=== PATIENT | male | born 1950 | race Caucasian/White ===

== ENCOUNTER 2016-11-26 00:24 | Emergency (ER) | payer MEDICARE ==
--- NOTE | 2016-11-26 01:11 | ER NURSING DOCUMENTATION ---
Nurse's Notes [facility] Name:Britt Rasheed Age:66 yrs Sex:Male :1950 Arrival Date:11/26/2016 Time:00:24 Bed1 Private MD:Gerry Beauchamp Diagnosis:Head Laceration-3 cm, simple closure (by MD) Presentation: 11/26 00:28 Presenting complaint: Patient states: PT was walking in his home, lost his balance and rh fell backwards, he struck his head on the chair. No LOC/no headache or nausea. Transition of care: Home. Complicating Factors: There are no complicating factors for this patient. 00:28 Acuity: GWENDOLYN 4 rh 00:28 Method Of Arrival: Private Vehicle Triage Assessment: 00:30 General: Appears in no apparent distress, Behavior is cooperative. Pain: Complains of rh pain in left parietal area and left knee. EENT: Oral mucosa is moist. Neuro: Level of Consciousness is awake, alert, obeys commands, Oriented to person, place, time, event, Moves all extremities. Speech is normal, Facial symmetry appears normal. Cardiovascular: Capillary refill < 3 seconds. GI: Denies nausea. Derm: Skin is intact, is healthy with good turgor, Skin is pink, warm & dry. Injury Description: Laceration sustained to left parietal area is clean, 0.5 to 2.5 cm long, was sustained less than 30 minutes ago. is bleeding moderately. Historical: - Allergies: SULFA (SULFONAMIDES); - Home Meds: 1. hydrocodone-acetaminophen 7.5-300 mg oral tab 2 tabs every 4 hours for Pain 2. diphenoxylate-atropine 2.5-0.025 mg oral tab one tab prn 3. cyclobenzaprine 10 mg oral tab 1 tab 3 times per day 4. hydrocodone-acetaminophen 10-325 mg oral tab every 4-6 hours 5. niacin oral once daily 6. omeprazole 20 mg oral cpDR 1 cap once daily 7. sertraline 100 mg oral tab 2 tabs once daily 8. Iron CR Oral daily - PMHx: Gastroenteritis (October 26, 2014); Acute Renal/Kidney Failure, Nontraumatic (October 26, 2014); Dehydration (October 26, 2014); left BKA; - Tetanus: < 10 years. - Ebola Screening: : Patient negative for fever greater than or equal to 101.5 degrees Fahrenheit, and additional compatible Ebola Virus Disease symptoms. - Immunization history: Flu Vaccine < 1 year. - Social history: Smoking status: Patient states was never smoker of tobacco. Screenin:32 Infectious Disease Risk None. Abuse screen: Denies threats or abuse. Denies injuries rh from another. Nutritional screening: No deficits noted. Assessment: 00:32 See Triage Assessment done by same RN. rh Vital Signs: 00:31 BP 103 / 60; Pulse 82; Resp 17; Temp 97.7; Pulse Ox 95% on R/A; Weight 68.04 kg; Height rh 5 ft. 8 in. (172.72 cm); Pain 5/10; 00:31 Body Mass Index 22.81 (68.04 kg, 172.72 cm) rh Cliff Coma Score: 00:40 Eye Response: spontaneous(4). Verbal Response: oriented(5). Motor Response: obeys cd commands(6). Total: 15. ED Course: 00:26 Patient arrived in ED. em2 00:26 Gerry Beauchamp DO is Private Physician. em2 00:28 Saima Amaya is Primary Nurse. rh 00:29 Triage completed. rh 00:32 Valuables Remains with patient Patient has correct armband on for positive rh identification. Bed in low position. Call light in reach. Side rails up X 1. Family accompanied patient. 00:32 Ice pack applied. rh 00:38 Wound care to laceration located on left parietal area was cleaned with soap and water, rh Irrigation Normal Saline Patient tolerated well. 01:00 Curry Julian MD is Attending Physician. cd 01:02 Assist Provider Assist provider with laceration repair on left parietal area that was rh between 2.6 to 7.5 cm using yair. Set up tray. Performed by Curry Julian MD Dressed with band aid, Neosporin, Patient tolerated well. Administered Medications: No medications were administered Outcome: 01:02 Discharge ordered by . cd 01:10 Discharged to home ambulatory, with significant other. rh 01:10 Condition: improved 01:10 Discharge Assessment: Patient awake, alert and oriented x 3. No cognitive and/or functional deficits noted. Patient verbalized understanding of disposition instructions. 01:10 Discharge instructions given to patient, significant other, Instructed on discharge instructions, follow up and referral plans. wound care, Demonstrated understanding of instructions. 01:10 Patient left the ED. 11/27 08:04 Discharge F/U Call: Unable to reach: left voicemail: nallely Signatures: Anne De La O RN RN Curry Taylor MD MD cd Elena-luis, Aakash em2 Saima Amaya
--- NOTE | 2016-11-26 01:11 | ER PHYSICIAN DOCUMENTATION ---
Physician Documentation [facility] Name:Britt Rasheed Age:66 yrs Sex:Male :1950 Arrival Date:11/26/2016 Time:00:24 Bed1 Private MD:Gerry Beauchamp ED, Chris Disposition: 11/26/16 01:02 Discharged to Home/Self Care. Impression: Head Laceration - 3 cm, simple closure (by MD). - Condition is Good. - Discharge Instructions: LACERATION, Scalp. - Medical Reconciliation form form. - Follow up: Emergency Department; When: 12/08/2016; Reason: Recheck today's complaints, Continuance of care. - Problem is new. - Symptoms are resolved. - Notes: Sutures out in 12 days on December 08, 2016. Keep clean and dry. Use SPF 50 sunscreen for 6 months to prevent scarring. Watch for signs of infection. HPI: 11/26 00:40 This 66 yrs old Male presents to ER via Private Vehicle with complaints of cd Laceration To Head. 00:40 The patient has a laceration related to: falling from a standing position, occurred at cd home, and there are no complicating factors. The injury was accidental. The laceration(s) is(are) located on the scalp. Onset: The symptom(s)/episode began/occurred acutely, just prior to arrival. Associated signs and symptoms: Pertinent negatives: dizziness, heavy bleeding, loss of consciousness, neck pain or confusion.. The patient has not experienced similar symptoms in the past. Historical: - Allergies: SULFA (SULFONAMIDES); - Home Meds: 1. hydrocodone-acetaminophen 7.5-300 mg oral tab 2 tabs every 4 hours for Pain 2. diphenoxylate-atropine 2.5-0.025 mg oral tab one tab prn 3. cyclobenzaprine 10 mg oral tab 1 tab 3 times per day 4. hydrocodone-acetaminophen 10-325 mg oral tab every 4-6 hours 5. niacin oral once daily 6. omeprazole 20 mg oral cpDR 1 cap once daily 7. sertraline 100 mg oral tab 2 tabs once daily 8. Iron CR Oral daily - PMHx: Gastroenteritis (October 26, 2014); Acute Renal/Kidney Failure, Nontraumatic (October 26, 2014); Dehydration (October 26, 2014); left BKA; - Tetanus: < 10 years. - Ebola Screening: : Patient negative for fever greater than or equal to 101.5 degrees Fahrenheit, and additional compatible Ebola Virus Disease symptoms. - Immunization history: Flu Vaccine < 1 year. - Social history: Smoking status: Patient states was never smoker of tobacco. ROS: 00:40 Skin: Positive for laceration(s), of the scalp, and an abrasion to his left knee. cd 00:40 Neuro: Negative for altered mental status, dizziness, headache, loss of consciousness, syncope, weakness. 00:40 All other systems are negative. Exam: 00:40 Constitutional: The patient appears in no acute distress, alert, awake. cd 00:40 Head/face: Noted is a laceration(s), that is linear, 3 cm(s), of the left parietal area, Basilar skull fracture findings: the patient does not have obvious signs of a basilar skull fracture, no Marino signs, no hemotympanum, no nasal drainage, no racoon eyes. 00:40 Eyes: Pupils: equal, round, and reactive to light and accomodation, Extraocular movements: intact throughout. 00:40 Neck: C-spine: vertebral tenderness, is not appreciated. 00:40 Musculoskeletal/extremity: Extremities: grossly normal except: noted in the left knee: abrasion, ROM: intact in all extremities, Circulation is intact in all extremities. Sensation intact. 00:40 Skin: Appearance: normal except for affected area. Vital Signs: 00:31 BP 103 / 60; Pulse 82; Resp 17; Temp 97.7; Pulse Ox 95% on R/A; Weight 68.04 kg; Height rh 5 ft. 8 in. (172.72 cm); Pain 5/10; 00:31 Body Mass Index 22.81 (68.04 kg, 172.72 cm) rh Cliff Coma Score: 00:40 Eye Response: spontaneous(4). Verbal Response: oriented(5). Motor Response: obeys cd commands(6). Total: 15. Laceration: 00:40 Wound Repair of 3cm ( 1.2in ) subcutaneous laceration to scalp. Linear shaped.. cd Hemostasis noted.. Distal neuro/vascular/tendon intact. Anesthesia: Local anesthetic administered with 3 mls of 2% lidocaine. Wound prep: Moderate cleansing with hibiclenz. Skin closed with 10 1-0 Lacy using Staple gun. Dressed with Bacitracin, bandaid. Patient tolerated well. MDM: 00:35 Data interpreted: Pulse oximetry: on room air is 95 %. Interpretation: normal. cd 01:00 Patient medically screened. 01:00 Data reviewed: vital signs, nurses notes, old medical records, and as a result, I will cd discharge patient. 01:05 Counseling: I had a detailed discussion with the patient and/or guardian regarding: the cd historical points, exam findings, and any diagnostic results supporting the discharge/admit diagnosis, the need for outpatient follow up, for a recheck, ED for suture removal. Response to treatment: the patient's symptoms have markedly improved after treatment, the patient's condition has returned to base line, and as a result, I will discharge patient. 11/26 00:32 Order name: Ice Packs; Complete Time: 00:33 rh 11/26 00:32 Order name: Wound Care; Complete Time: 00:33 rh Dispensed Medications: No medications were administered Signatures: Curry Julian MD MD cd Hofsess, Rachel
== END 2016-11-26 01:11 | disposition home or self-care (01) ==
LOC: ER 00:24
DX: S01.01XA Laceration without foreign body of scalp, initial encounter (principal); W19.XXXA Unspecified fall, initial encounter; Y92.019 Unspecified place in single-family (private) house as the place of occurrence of the external cause; S80.212A Abrasion, left knee, initial encounter; Z79.899 Other long term (current) drug therapy
CPT/HCPCS: 12002; 99282; 99283

== ENCOUNTER 2016-12-10 13:07 | Emergency (ER) | payer MEDICARE ==
--- NOTE | 2016-12-10 13:39 | ER NURSING DOCUMENTATION ---
Nurse's Notes [facility] Name:Britt Rasheed Age:66 yrs Sex:Male :1950 Arrival Date:12/10/2016 Time:13:07 Bed5 Private MD: Diagnosis:Staple Removal Presentation: 12/10 13:15 Acuity: GWENDOLYN 5 rs 13:15 Presenting complaint: Patient states: Staple removal from scalp. Denies having any rs problems. No redness or swelling, no drainage. The laceration is well healed. Transition of care: patient was not received from another setting of care. 13:15 Method Of Arrival: Private Vehicle rs Triage Assessment: 13:28 General: Appears comfortable, well developed, well nourished, well groomed, Behavior is rs cooperative, pleasant. Pain: Denies pain. Neuro: No deficits noted. Level of Consciousness is awake, alert, Oriented to person, place, time, event. Cardiovascular: No deficits noted. Capillary refill < 3 seconds Pulses are 3+ in left radial artery. Respiratory: No deficits noted. Respiratory effort is even, unlabored, Respiratory pattern is regular, symmetrical. Derm: No deficits noted. Skin is pink, warm & dry. Historical: - Allergies: SULFA (SULFONAMIDES); - Home Meds: 1. hydrocodone-acetaminophen 7.5-300 mg oral tab 2 tabs every 4 hours for Pain 2. diphenoxylate-atropine 2.5-0.025 mg oral tab one tab prn 3. cyclobenzaprine 10 mg oral tab 1 tab 3 times per day 4. hydrocodone-acetaminophen 10-325 mg oral tab every 4-6 hours 5. niacin oral once daily 6. omeprazole 20 mg oral cpDR 1 cap once daily 7. sertraline 100 mg oral tab 2 tabs once daily 8. Iron CR Oral daily - PMHx: Gastroenteritis (October 26, 2014); Acute Renal/Kidney Failure, Nontraumatic (October 26, 2014); Dehydration (October 26, 2014); left BKA; Head Laceration - 3 cm, simple closure (by MD)(November 26, 2016); - Tetanus: < 10 years. - Ebola Screening: : Patient negative for fever greater than or equal to 101.5 degrees Fahrenheit, and additional compatible Ebola Virus Disease symptoms. Patient denies exposure to infectious person. Patient denies travel to an Ebola-affected area in the 21 days before illness onset. No symptoms or risks identified at this time. . - Immunization history: Unable to Obtain. - Social history: Smoking status: Patient states was never smoker of tobacco. Screenin:32 Infectious Disease Risk None. Abuse screen: Denies threats or abuse. Nutritional rs screening: No deficits noted. Vital Signs: 13:20 BP 128 / 76; Pulse 82; Resp 18; Temp 98.3; Pulse Ox 94% on R/A; Pain 0/10; rs ED Course: 13:14 Patient arrived in ED. cj 13:22 Lillie Dickinson, RN is Primary Nurse. rs 13:25 Triage completed. rs 13:32 Valuables Remains with patient. rs 13:33 Removed yair from posterior scalp [place] site is well healed Patient tolerated well.rs Administered Medications: No medications were administered Outcome: 13:34 Discharged to home ambulatory. rs 13:34 Condition: improved 13:34 Instructed on follow up and referral plans. 13:38 Discharge ordered by . rs 13:38 Patient left the ED. rs Signatures: Lillie Dickinson, JOSE ALBERTO RN Jess Naylor
== END 2016-12-10 13:39 | disposition home or self-care (01) ==
LOC: ER 13:07
DX: Z48.02 Encounter for removal of sutures (principal); S01.01XD Laceration without foreign body of scalp, subsequent encounter
CPT/HCPCS: 99281